=== PATIENT | male | born 1955 | race Caucasian/White ===

== ENCOUNTER 2017-06-23 12:12 | Day surgery (SDC) | payer BC ==
[2017-06-20 09:49] VITALS: BMI 53.1
[2017-06-23] MEDS ORDERED: BUPIVACAINE HCL/PF 2.5 MG/ML - 30 ML VIAL IJ ONE (13:46)
[2017-06-23] MEDS ORDERED: MIDAZOLAM HCL 2 MG/2 ML SINGLE DOSE VIAL ONE (14:11)
[2017-06-23] MEDS ORDERED: ONDANSETRON 4 MG/2 ML VIAL ONE (14:46)
[2017-06-23] MEDS ORDERED: ceFAZolin SODIUM 1 GM VIAL ONE (14:46)
[2017-06-23] MEDS ORDERED: DEXAMETHASONE SOD PHOSPHATE 4 MG/1 ML VIAL ONE (14:46)
[2017-06-23] MEDS ORDERED: ONDANSETRON 4 MG/2 ML VIAL IVPUSH PRN (15:35)
[2017-06-23] MEDS ORDERED: PROMETHAZINE HCL 25 MG/1 ML VIAL IVPUSH PRN (15:35)
[2017-06-23] MEDS ORDERED: oxyCODONE HCL 5 MG TABLET PO PRN ×2 (15:35)
[2017-06-23 15:52] VITALS: TEMP 98.7
[2017-06-23 19:18] VITALS: BP 127/81; PULSE 66
--- NOTE | 2017-06-25 13:37 | OP ---
DATE OF OPERATION: 06/23/2017 LOCATION: [facility]. SURGEON: Basilio Tyler MD WORK[employer]ACE REH[employer]ILITATION OFFICER: YAMINI Chaves PREOPERATIVE DIAGNOSES: 1. Left knee medial and lateral meniscal tear. 2. Left knee cartilage injury. 3. Left knee synovitis. POSTOPERATIVE DIAGNOSES: 1. Left knee medial and lateral meniscal tear. 2. Left knee cartilage injury. 3. Left knee synovitis. PROCEDURES: 1. Left knee arthroscopy, with partial meniscectomy of medial and lateral meniscus. 2. Left knee arthroscopy with chondroplasty and abrasion-plasty. 3. Left knee arthroscopy with synovectomy including removal of medial plica. FINDINGS: 1. Medial meniscus body and posterior horn tear. 2. Lateral meniscus anterior horn and posterior horn tear. 3. Synovitis, patellofemoral, medial and lateral notch area. 4. Anterior grade 2 to 3 cartilage injury, medial femoral condyle and tibial plateau. 5. ACL and PCL intact. 6. Diffuse grade 1 to 2 cartilage injury, lateral joint line. 7. Central grade 2 cartilage injury, patella. 8. Grade 2 to 4 changes of patellofemoral trochlea and large medial plica. PROCEDURE: Informed consent was obtained. The patient came to the operating room, where the lower extremity was prepped and draped in a sterile fashion. A tourniquet was placed on the upper thigh, but not inflated. Using standard arthroscopic technique, a lateral incision and portal was made to allow for introduction of the camera into the suprapatellar bursa. This was then taken to the medial joint line, where under direct visualization, a medial incision and portal was made. Excessive synovium noted in the medial, lateral and patellofemoral and notch area was removed by an upbiter, shaver and Bovie cautery. This was found to bring in inflammatory tissue into the joint surface, a source of pain and dysfunction. Probing of the medial and lateral meniscus found tears, as described in the findings. These were removed with the upbiter and shaver and taken back to a stable rim. Grade 2 to 3 degenerative changes were treated with a chondroplasty, removing all flaking surfaces with low-setting Bovie along the periphery to prevent further flaking. Grade 4 changes, as noted, were treated with an abrasoplasty, creating a bleeding surface at the bone/cartilage interface. Aggressive debridement with shaver/marlo created bleeding surface. Micro fracture also done when indicated in findings All areas of the knee were once again reexamined. The knee was then drained and a single suture was placed in all portals. A sterile dressing was placed and the patient was transferred to the recovery room without complication. BASILIO TYLER M.D. [id number]
--- NOTE | 2017-06-28 14:51 | PATH ---
Surgical Pathology Report Patient Name: PAOLA CURRAN [facility]. Rec. #: [id number] /Age/Gender: 1955 (Age: 62) / M Account: [id number] Location: [facility] Taken: 06/23/2017 Received: 06/23/2017 Reported: 06/28/2017 Physicians: Basilio Jeffries M.D. Specimen(s) Received LEFT KNEE SHAVINGS Clinical History Left knee internal derangement Final Diagnosis KNEE, LEFT, ARTHROSCOPIC SHAVINGS: FIBROSYNOVIAL TISSUE SHOWING REACTIVE HYPERPLASIA. CARTILAGE AND BONE. Electronically Signed Angelina Rojas M.D. Gross Description Received in formalin, labeled "left knee shavings," is a 4.0 x 3.3 x 0.3 cm. aggregate of griggs-yellow soft tissue fragments. A financial services representative portion is submitted in one cassette. 06/26/201706/26/2017
== END 2017-06-23 18:15 | disposition home or self-care (01) ==
LOC: FASU 12:12
PROVIDERS: ATTEND Orthopaedic Surgery
PROC: 0SBD4ZZ Excision of Left Knee Joint, Percutaneous Endoscopic Approach (ICD-10-PCS; 2017-06-23)
PROC: 0SBD4ZZ Excision of Left Knee Joint, Percutaneous Endoscopic Approach (ICD-10-PCS; 2017-06-23)
PROC: 0SBD4ZZ Excision of Left Knee Joint, Percutaneous Endoscopic Approach (ICD-10-PCS; principal; 2017-06-23 15:02)
DX: S83.242A Other tear of medial meniscus, current injury, left knee, initial encounter (principal); S83.282A Other tear of lateral meniscus, current injury, left knee, initial encounter; S83.8X2A Sprain of other specified parts of left knee, initial encounter; M65.862 Other synovitis and tenosynovitis, left lower leg; X58.XXXA Exposure to other specified factors, initial encounter; Y93.9 Activity, unspecified; Y92.9 Unspecified place or not applicable
CPT/HCPCS: 88304-TC

== ENCOUNTER 2020-01-28 04:56 | Day surgery (SDC) | payer BC ==
[2020-01-23 15:34] VITALS: BMI 56.1
--- OUTSIDE RECORDS SUMMARY | 2020-01-28 05:02 | XMS ---
:1955 Author Organization [facility] Care Team Providers Name Role Phone Casa Watts Unavailable [phone] PONCHO Conner, JOSE Unavailable Unavailable Re-disclosure Warning The records that you are about to access may contain information from federally- assisted alcohol or drug abuse programs. If such information is present, then the following federally mandated warning applies: This information has been disclosed to you from records protected by federal confidentiality rules (42 CFR part 2). The federal rules prohibit you from making any further disclosure of this information unless further disclosure is expressly permitted by the written consent of the person to whom it pertains or as otherwise permitted by 42 CFR part 2. A general authorization for the release of medical or other information is NOT sufficient for this purpose. The Federal rules restrict any use of the information to criminally investigate or prosecute any alcohol or drug abuse patient.The records that you are about to access may contain highly sensitive health information, the redisclosure of which is protected by Article 27-F of the [facility] Public Health law. If you continue you may haveaccess to information: Regarding HIV / AIDS; Provided by facilities licensed or operated by the [facility] Office of Mental Health; or Provided by the [facility] Office for People With Developmental Disabilities. If such information is present, then the following [facility] mandated warning applies: This information has been disclosed to you from confidential records which are protected by state law. State law prohibits you from making any further disclosure of this information without the specific written consent of the person to whom it pertains, or as otherwise permitted by law. Any unauthorized further disclosure in violation of state law may result in a fine or retirement sentence or both. A general authorization for the release of medical or other information is NOT sufficient authorization for further disclosure. Encounters Encounter Providers Location Date Indications Data Source(s ) Outpatient Admitter: JOSE Lai 04/15/2019 [facility] 08:34:00 AM Medical Ce [facility] EST Outpatient Attender: JOSE Lai 04/15/2019 [facility] 06:50:00 AM [facility] KAdmitter: JOSE GARCIA 04/15/2019 KReferrer: JOSE 11:23:00 AM P[facility]CHO Conner EST Attender: Casa Ignacia 04/15/2019 [facility] ([facility] 06:50:00 AM [facility] EST - Center) 04/15/2019 06:50:00 AM EST Outpatient Admitter: JOSE Lai 10/01/2018 [facility] 10:12:00 AM Medical Ce nter EDT Outpatient Attender: JOSE Lai 10/01/2018 [facility] 06:53:00 AM Medical Cent er KAdmitter: JOSE GARCIA 10/01/2018 KReferrer: JOSE 01:27:00 PM PONCHO Conner EDT 10/01/2018 [facility] ([facility] 06:53:00 AM [facility] EDT - [place]) 10/01/2018 06:53:00 AM EDT Insurance Providers Payer Policy type Policy ID Covered Covered alliance party's Policy Pl an name / Coverage alliance party ID relationship to [employer] Inf ormation type santiago BC PPO [id number] [place] [id number] BLUE O [id number] CROSS-ALB ANY BLUE [id number] self [id number] CROSS-ALB ANY Problems, Conditions, and Diagnoses Code Display Name Description Problem Type Effective Dates Data Source(s) Z86.010 Personal history PERSONAL HISTORY Diagnosis 04/15/2019 [facility] amie Mabry of colonic polyps OF COLONIC POLYPS 06:50:00 AM [facility] Center Z12.11 Encounter for ENCOUNTER FOR Diagnosis 04/15/2019 [facility] screening for SCREENING FOR 06:50:00 AM [facility] malignant MALIGNANT neoplasm of colon NEOPLASM OF COLON K25.7 Chronic gastric CHRONIC GASTRIC Diagnosis 04/15/2019 Tae Mabry ulcer without ULCER WITHOUT 06:50:00 AM [facility] Center hemorrhage or HEMORRHAGE OR perforation PERFORATION Results ID Date Data Source [id number] 01/23/2020 04:55:00 PM EDT [facility] Name Value Range Interpretation Description Data Sup porting Code Source(s) Document(s ) SARS [facility] coronavirus 2 RNA This lab was ordered by [facility] and reported by [facility]. Procedure Social History Code Duration Value Status Description Data Source(s ) Smoking Unknown if ever completed Unknown if ever Tae Mabry smoked [facility]
[2020-01-28] MEDS ORDERED: TETRACAINE/BENZOCAINE/BUTAMBEN 20 GM SPR TP ONE (08:00)
[2020-01-28] MEDS ORDERED: LIDOCAINE VISCOUS 2% ORAL/TOP 20 ML UNIT-DOSE CUP ONE (08:00)
[2020-01-28] MEDS ORDERED: LIDOCAINE VISCOUS 2% ORAL/TOP 20 ML UNIT-DOSE CUP MM ONE (08:01)
[2020-01-28 08:22] VITALS: TEMP 98.2
[2020-01-28 08:51] VITALS: BP 122/69; PULSE 63
--- NOTE | 2020-01-29 18:06 | PATH ---
Surgical Pathology Report Patient Name: PAOLA CURRAN [facility]. Rec. #: [id number] /Age/Gender: 1955 (Age: 64) / M Account: [id number] Location: [facility] Taken: 01/28/2020 Received: 01/28/2020 Reported: 01/29/2020 Physicians: Socrates Luz M.D. Specimen(s) Received ANTRUM Clinical History History gastric ulcer, reevaluation of surgery Postoperative diagnosis: Healed gastric ulcer Final Diagnosis STOMACH, ANTRUM, BIOPSY: GASTRIC ANTRAL MUCOSA WITH MILD CHRONIC GASTRITIS. IMMUNOHISTOCHEMICAL STAIN FOR H. PYLORI IS NEGATIVE. Positive and negative controls (internal if applicable) show appropriate results. Electronically Signed Tracie Friedman M.D. Gross Description Received in formalin, labeled "antrum" are 4 griggs, irregular portions of soft tissue measuring 0.1-0.3 cm. in greatest dimension. The specimens are submitted in toto in one cassette. MLSZ/01/28/2020 sancedric/01/28/2020
== END 2020-01-28 09:15 | disposition home or self-care (01) ==
LOC: JASU-ENDO 04:56
PROVIDERS: ATTEND Internal Medicine Gastroenterology
PROC: 0DB68ZX Excision of Stomach, Via Natural or Artificial Opening Endoscopic, Diagnostic (ICD-10-PCS; principal; 2020-01-28 08:00)
DX: Z01.818 Encounter for other preprocedural examination (principal); K29.50 Unspecified chronic gastritis without bleeding; Z87.11 Personal history of peptic ulcer disease
CPT/HCPCS: 88305-TC; 88342-TC

== ENCOUNTER 2020-12-11 22:00 | Emergency (ER) | payer BC ==
[2020-12-11 22:09] VITALS: BP 147/72; PULSE 72; TEMP 98.4; BMI 56.6
[2020-12-11] MEDS ORDERED: CEPHALEXIN MONOHYDRATE 500 MG CAPSULE (UD) PO ONE (23:50)
[2020-12-11] MEDS ORDERED: CEPHALEXIN MONOHYDRATE 500 MG CAPSULE (UD) ONE (23:53)
== END 2020-12-11 23:57 | disposition home or self-care (01) ==
LOC: FER 22:00
DX: L03.114 Cellulitis of left upper limb (principal); S50.812A Abrasion of left forearm, initial encounter
CPT/HCPCS: 73090-TC-LT-FY; 73130-TC-LT-FY; 99284-25

== ENCOUNTER 2021-11-18 11:39 | Emergency (ER) | payer BC ==
[2021-11-18] MEDS ORDERED: CEPHALEXIN MONOHYDRATE 500 MG CAPSULE (UD) PO ONE (12:00)
[2021-11-18 12:05] VITALS: BP 128/72; PULSE 83; TEMP 98.8; BMI 109.1
[2021-11-18] MEDS ORDERED: CEPHALEXIN MONOHYDRATE 500 MG CAPSULE (UD) ONE (12:12)
== END 2021-11-18 12:26 | disposition home or self-care (01) ==
LOC: FER 11:39
DX: L03.116 Cellulitis of left lower limb (principal)
CPT/HCPCS: 99283-25

== ENCOUNTER 2022-02-28 12:27 | Emergency (ER) | payer BC ==
[2022-02-28 12:47] VITALS: BP 135/79; PULSE 80; RESP 20; TEMP 99.2; BMI 49.5
[2022-02-28] MEDS ORDERED: NYSTATIN 100,000 UNIT/GM TOPICAL CREAM 15 GM TUBE TP ONE (13:02)
[2022-02-28 13:48] LABS: HEMATOCRIT 37.9 % (35.4-49); HEMOGLOBIN 13.5 G/dL (11.7-16.9); MCH 32.5 pg (25.7-33.7); MCHC 35.7 g/dl (32.0-35.9); MEAN CELL VOLUME 91.1 fl (80-96); MEAN PLT VOLUME 7.5 fl (7.5-11.1); PLATELET COUNT 230.1 10^3/uL (134-434); RBC 4.16 10^6/uL (4.00-5.60); RDW 14.6 % (11.9-15.9); WHITE BLOOD COUNT 12.2 10^3/uL (4.0-10.8)
[2022-02-28 13:52] LABS: ALBUMIN 4.1 g/dl (3.4-5.0); CALCIUM 9.4 mg/dl (8.5-10); CREATININE 0.9 mg/dl (0.55-1.3); TOT PROT 7.2 g/dl (6.4-8.2)
[2022-02-28] MEDS ORDERED: NYSTATIN POWDER 100,000 UNITS/GM - 15 GM TOPICAL POWDER TP ONE (15:52)
[2022-02-28] MEDS ORDERED: SULFAMETHOXAZOLE/TRIMETHOPRIM 800MG/160MG D.S. TABLET PO ONE (15:52)
[2022-02-28] MEDS ORDERED: SULFAMETHOXAZOLE/TRIMETHOPRIM 800MG/160MG D.S. TABLET ONE (15:54)
== END 2022-02-28 16:35 | disposition home or self-care (01) ==
LOC: FER 12:27
DX: L03.311 Cellulitis of abdominal wall (principal); B37.2 Candidiasis of skin and nail
CPT/HCPCS: 36415; 74177-TC; 80053; 81003; 85027; 87086; 99285-25; Q9967

== ENCOUNTER 2022-06-10 06:03 | Day surgery (SDC) | payer BC, OTHER ==
[2022-06-07 17:58] VITALS: BMI 50.0
[2022-06-10] MEDS ORDERED: PROPOFOL 20 ML ONE ×2 (06:51→08:46)
[2022-06-10] MEDS ORDERED: MIDAZOLAM HCL 2 MG/2 ML SINGLE DOSE VIAL ONE (06:52)
[2022-06-10] MEDS ORDERED: SUCCINYLCHOLINE CHLORIDE 200 MG/10 ML SYRINGE ONE (06:52)
[2022-06-10] MEDS ORDERED: ACETAMINOPHEN INJECTION 100 ML IVPB ONE (06:55)
[2022-06-10] MEDS ORDERED: BUPIVACAINE HCL/PF 0.5% (5 MG/ML) 30 ML VIAL IJ ONE (06:55)
[2022-06-10] MEDS ORDERED: DEXAMETHASONE SOD PHOSPHATE 10 MG/1 ML VIAL ONE (06:55)
[2022-06-10] MEDS ORDERED: EPINEPHrine 1:1,000 1,000 MCG/ML ML ONE (07:22)
[2022-06-10] MEDS ORDERED: ONDANSETRON 4 MG/2 ML VIAL IVPUSH PRN (07:25)
[2022-06-10] MEDS ORDERED: ACETAMINOPHEN 325 MG TABLET (FP) PO PRN (07:25)
[2022-06-10] MEDS ORDERED: oxyCODONE HCL 5 MG TABLET PO PRN (07:25)
[2022-06-10] MEDS ORDERED: SEVOFLURANE 250 ML BTL ONE (07:29)
[2022-06-10] MEDS ORDERED: LACTATED RINGERS SOLUTION 1,000 ML IV SCH (07:30)
[2022-06-10] MEDS ORDERED: ceFAZolin SODIUM 1 GM VIAL ONE ×3 (09:08)
[2022-06-10] MEDS ORDERED: DEXAMETHASONE SOD PHOSPHATE 4 MG/1 ML VIAL ONE (09:15)
[2022-06-10] MEDS ORDERED: KETOROLAC TROMETHAMINE 30 MG/1 ML VIAL ONE (09:15)
[2022-06-10 10:46] VITALS: PULSE 67; RESP 20; TEMP 97.8
[2022-06-10 10:52] VITALS: BP 132/66
== END 2022-06-10 10:54 | disposition home or self-care (01) ==
LOC: FASU 06:03
PROVIDERS: ATTEND Orthopaedic Surgery
PROC: 0RNJ4ZZ Release Right Shoulder Joint, Percutaneous Endoscopic Approach (ICD-10-PCS; 2022-06-10)
PROC: 0LS34ZZ Reposition Right Upper Arm Tendon, Percutaneous Endoscopic Approach (ICD-10-PCS; 2022-06-10)
PROC: 0RHJ44Z Insertion of Internal Fixation Device into Right Shoulder Joint, Percutaneous Endoscopic Approach (ICD-10-PCS; 2022-06-10)
PROC: 0RQJ4ZZ Repair Right Shoulder Joint, Percutaneous Endoscopic Approach (ICD-10-PCS; 2022-06-10)
PROC: 0LQ14ZZ Repair Right Shoulder Tendon, Percutaneous Endoscopic Approach (ICD-10-PCS; principal; 2022-06-10 09:06)
DX: M75.121 Complete rotator cuff tear or rupture of right shoulder, not specified as traumatic (principal); M75.01 Adhesive capsulitis of right shoulder; M75.41 Impingement syndrome of right shoulder; M19.011 Primary osteoarthritis, right shoulder; S43.431A Superior glenoid labrum lesion of right shoulder, initial encounter; X58.XXXA Exposure to other specified factors, initial encounter; Y92.9 Unspecified place or not applicable; Y93.9 Activity, unspecified
CPT/HCPCS: 29807; 29823; 29824; 29825; 29826; 29827; C1776; 94760; J1100

== ENCOUNTER 2023-02-16 05:06 | Day surgery (SDC) | payer BC, OTHER ==
[2023-02-14 10:50] VITALS: BMI 51.8
[2023-02-16 14:27] VITALS: BP 118/62; PULSE 59; RESP 18; TEMP 97
== END 2023-02-16 14:30 | disposition home or self-care (01) ==
LOC: JASU-ENDO 05:06
PROVIDERS: ATTEND Internal Medicine Gastroenterology
PROC: 0DBL8ZX Excision of Transverse Colon, Via Natural or Artificial Opening Endoscopic, Diagnostic (ICD-10-PCS; principal; 2023-02-16 12:30)
DX: D12.3 Benign neoplasm of transverse colon (principal)
CPT/HCPCS: 88305-TC

== ENCOUNTER 2023-06-19 08:12 | Observation (INO) | payer BC, OTHER ==
[2023-06-19] MEDS ORDERED: ACETAMINOPHEN INJECTION 100 ML IVPB ONE (08:57)
[2023-06-19] MEDS: LACTATED RINGERS SOLUTION 1000 ML INFUS.BAG IV ONE (09:38)
[2023-06-19] MEDS: ACETAMINOPHEN 1000 MG/100 ML BAG IVPB ONE (09:39)
[2023-06-19 09:53] LABS: HEMATOCRIT 18.9 % (35.4-49); MCH 30.2 pg (25.7-33.7); MCHC 32.9 g/dl (32.0-35.9); MEAN CELL VOLUME 91.8 fl (80-96); MEAN PLT VOLUME 7.9 fl (7.5-11.1); PLATELET COUNT 204.3 10^3/uL (134-434); RBC 2.06 10^6/uL (4.00-5.60); RDW 17.2 % (11.9-15.9); WHITE BLOOD COUNT 3.8 10^3/uL (4.0-10.8)
[2023-06-19 10:10] LABS: HEMOGLOBIN 6.2 G/dL (11.7-16.9)
[2023-06-19 10:17] LABS: ALBUMIN 4.1 g/dl (3.4-5.0); BILIRUBIN,TOTAL 0.7 mg/dl (0.2-1); CALCIUM 9.1 mg/dl (8.5-10.1); CREATININE 0.7 mg/dl (0.6-1.3); POTASSIUM 3.7 mmol/L (3.5-5.1); TOT PROT 6.2 g/dl (6.4-8.2)
[2023-06-19 10:18] LABS: ANISOCYTOSIS 1+; PLATELET ESTIMATE ADEQUATE
[2023-06-19] MEDS ORDERED: ACETAMINOPHEN 1000 MG/100 ML BAG IVPB PRN (16:40)
[2023-06-19] MEDS ORDERED: PANTOPRAZOLE SODIUM 40 MG VIAL ONE (17:19)
[2023-06-19] MEDS: PANTOPRAZOLE SODIUM 40 MG VIAL IVPUSH ONE (17:20)
[2023-06-19] MEDS: PANTOPRAZOLE SODIUM 80 MG in SODIUM CHLORIDE 100 ML IVPB SCH (17:30)
[2023-06-19 18:39] LABS: HEMATOCRIT 20.9 % (35.4-49); MCH 29.8 pg (25.7-33.7); MCHC 32.5 g/dl (32.0-35.9); MEAN CELL VOLUME 91.6 fl (80-96); MEAN PLT VOLUME 7.5 fl (7.5-11.1); PLATELET COUNT 216.8 10^3/uL (134-434); RBC 2.28 10^6/uL (4.00-5.60); RDW 17.4 % (11.9-15.9); WHITE BLOOD COUNT 4.4 10^3/uL (4.0-10.8)
[2023-06-19 18:43] LABS: HEMOGLOBIN 6.8 G/dL (11.7-16.9)
[2023-06-19 18:59] LABS: ALBUMIN 4.1 g/dl (3.4-5.0); BILIRUBIN,TOTAL 1.2 mg/dl (0.2-1); CALCIUM 9.1 mg/dl (8.5-10.1); CREATININE 0.7 mg/dl (0.6-1.3); POTASSIUM 3.7 mmol/L (3.5-5.1); TOT PROT 6.2 g/dl (6.4-8.2)
[2023-06-20 05:30] VITALS: BMI 49.1
[2023-06-20 09:45] LABS: INR 1.18 (0.83-1.09); PROTHROMBIN TIME (PATIENT) 13.7 SEC (9.7-13.0)
[2023-06-20 10:03] LABS: BASO % 0.3 % (0-2.0); EOS % 0.9 % (0-4.5); HEMATOCRIT 22.5 % (35.4-49); HEMOGLOBIN 7.8 GM/dL (11.7-16.9); LYMPH % 19.6 % (8-40); MCH 30.5 pg (25.7-33.7); MCHC 34.6 g/dl (32.0-35.9); MEAN CELL VOLUME 88.3 fl (80-96); MEAN PLT VOLUME 7.5 fl (7.5-11.1); MONO % 8.6 % (3.8-10.2); NEUT % 70.6 % (42.8-82.8); PLATELET COUNT 245 10^3/uL (134-434); RBC 2.55 M/mm3 (4.00-5.60); WHITE BLOOD COUNT 4.6 K/mm3 (4.0-10.0)
[2023-06-20 11:12] LABS: ALBUMIN 3.6 g/dl (3.4-5.0); BILIRUBIN,TOTAL 1.4 mg/dL (0.2-1); BLOOD UREA NITROGEN 13.4 mg/dL (7-18); CALCIUM 9.3 mg/dL (8.5-10.1); CREATININE 0.8 mg/dL (0.55-1.3); POTASSIUM 3.8 mmol/L (3.5-5.1); TOT PROT 6.9 g/dl (6.4-8.2)
[2023-06-20 13:54] VITALS: RESP 17
[2023-06-20 15:29] VITALS: BP 119/69; PULSE 90; TEMP 97.4
[2023-06-20] MEDS ORDERED: PANTOPRAZOLE 40 MG TABLET PO SCH (22:00)
== END 2023-06-20 18:24 | disposition left against medical advice (07) ==
LOC: FER 08:12 → FM/S 16:20 → INTOOBSV 16:20 → UNDOADMIN 16:20 → J5S 16:20 → UNDOADMOB 16:20 → J5S 06-20 04:30 → UNDOADMIN 06-20 04:30 → J5S 06-20 14:58
PROVIDERS: ATTEND Internal Medicine
PROC: 0DB78ZX Excision of Stomach, Pylorus, Via Natural or Artificial Opening Endoscopic, Diagnostic (ICD-10-PCS; 2023-06-20)
PROC: 3E033NZ Introduction of Analgesics, Hypnotics, Sedatives into Peripheral Vein, Percutaneous Approach (ICD-10-PCS; 2023-06-20)
PROC: 3E033GC Introduction of Other Therapeutic Substance into Peripheral Vein, Percutaneous Approach (ICD-10-PCS; 2023-06-20)
PROC: 3E0337Z Introduction of Electrolytic and Water Balance Substance into Peripheral Vein, Percutaneous Approach (ICD-10-PCS; 2023-06-20)
PROC: 30233N1 Transfusion of Nonautologous Red Blood Cells into Peripheral Vein, Percutaneous Approach (ICD-10-PCS; principal; 2023-06-20 13:30)
DX: K25.9 Gastric ulcer, unspecified as acute or chronic, without hemorrhage or perforation (principal); D64.89 Other specified anemias; E78.5 Hyperlipidemia, unspecified
CPT/HCPCS: 0241U-QW; 36415; 36430; 74177-TC; 80053; 81003; 83690; 85025; 85027; 85610; 86900; 86922; 93005; 99285-25; G0378; J0131; P9038; P9058; Q9967